=== PATIENT | female | born 1980 | race Caucasian/White ===

== ENCOUNTER 2023-01-01 01:41 | Emergency (ER) | payer OTHER, SELFPAY ==
[2023-01-01 01:43] VITALS: BP 132/90; PULSE 113; RESP 20; TEMP 36.9; O2SAT 99; BMI 30.9
--- NOTE | 2023-01-01 02:00 | PC.NURSE ---
pt presents to ED because she states that she was at [facility] today and her right knee locked up and she couldn't bend it. pt then fell onto right knee. bruising at this time. pt states it is difficult to extend leg. iced leg at home. took tylenol and cyclobenzaprine around 5pm. ambulated into room .
--- NOTE | 2023-01-01 02:08 | ED.LOWEXI1 ---
HPI - Extremity Injury (Lower) General Chief Complaint: Extremity Injury, Lower Stated Complaint: R KNEE Time Seen by Provider: 01/01/23 01:59 Source: patient Mode of arrival: walk-in Limitations: no limitations History of Present Illness HPI Narrative: running in the rain yesterday and fell outside onto her right knee. Pain ever since . Has to hobble to ambulate because of the pain. Denies numbness or weakness of the leg. Took tylenol for pain without relief MD complaint: Reports knee injury Injury: Right: knee Related Data Home Medications Medication Instructions Recorded Confirmed cyclobenzaprine 10 mg tablet 10 mg PO DAILY 01/01/23 01/01/23 doxepin 10 mg capsule 10 mg PO DAILY 01/01/23 01/01/23 lacosamide 100 mg tablet 100 mg PO DAILY 01/01/23 01/01/23 levetiracetam 500 mg 500 mg PO DAILY 01/01/23 01/01/23 tablet,extended release 24 hr nefazodone 100 mg tablet 100 mg PO DAILY 01/01/23 01/01/23 Allergies Allergy/AdvReac Type Severity Reaction Status Date / Time codeine Allergy Intermediate Swelling Verified 01/01/23 01:52 of Lip/Tongue/Throat amoxicillin Allergy Mild Hives Verified 01/01/23 01:52 Penicillins Allergy Mild Hives Verified 01/01/23 01:52 ibuprofen Allergy Unknown Verified 01/01/23 01:52 iv dye Allergy Intermediate Uncoded 01/01/23 01:52 Review of Systems ROS Status of ROS 10 or more systems reviewed and unremarkable except as noted in history and below [facility] Social History Smoking status: Current every day smoker Exam Constitutional Vital Signs - 24 hr 01/01/23 01:43 Temperature 98.5 F Pulse Rate [Monitor] 113 H Respiratory Rate 20 Blood Pressure [Right Arm] 132/90 H Pulse Oximetry 99 Oxygen Delivery Method Room Air Common normals: no apparent distress, oriented x3 and healthy appearing HENMT Common normals: normocephalic and head/scalp atraumatic Eye Common normals: EOMs intact bilaterally and conjunctivae normal Respiratory Common normals: no use of accessory muscles and clear to auscultation bilaterally Cardio Common normals: regular rhythm, S1 normal heart sound and S2 normal heart sound GI Common normals: non-tender Extremity Other: mild swelling and minor abrasion right knee. Keeps knee in flexion as position of comfort Neuro Common normals: oriented x3, moves all extremities, no focal motor deficits and no sensory deficits noted Psych Appearance: grossly normal Course Vital Signs Vital signs: Vital Signs Temperature 98.5 F 01/01/23 01:43 Pulse Rate 113 H 01/01/23 01:43 Respiratory Rate 20 01/01/23 01:43 Blood Pressure 132/90 H 01/01/23 01:43 Pulse Oximetry 99 01/01/23 01:43 Oxygen Delivery Method Room Air 01/01/23 01:43 Temperature 98.5 F 01/01/23 01:43 Pulse Rate 113 H 01/01/23 01:43 Respiratory Rate 20 01/01/23 01:43 Blood Pressure 132/90 H 01/01/23 01:43 Pulse Oximetry 99 01/01/23 01:43 Oxygen Delivery Method Room Air 01/01/23 01:43 MDM - Extremity Injury (Lower) MDM Narrative Medical decision making narrative: patient presents after a fall striking her knee. Has a contusion of the knee on exam. xray neg for fracture. Patient medicated for pain and then placed in a knee immobilizer and provided crutches. Discharged home to follow up with her doctor Discharge Plan Discharge Chief Complaint: Extremity Injury, Lower Clinical Impression: Contusion of knee, right Prescriptions / Home Meds: No Action cyclobenzaprine 10 mg tablet 10 mg PO DAILY doxepin 10 mg capsule 10 mg PO DAILY lacosamide 100 mg tablet 100 mg PO DAILY levetiracetam 500 mg tablet extended release 24 hr 500 mg PO DAILY nefazodone 100 mg tablet 100 mg PO DAILY Instructions: Contusion in Adults (ED) Stand Alone Forms: Portal Instructions Referrals: Physician,Non-Staff, MD [Primary Care Provider] - 1 week
--- NOTE | 2023-01-01 02:12 | XR_ITS ---
The [address] [address] Patient Name: MOISES KEE MRN: [id number] date: 1980 Sex: F Assigned Patient Location: ER Current Patient Location: ER Accession/Order Number: [id number] Exam Date: 01/01/2023 02:15 Report Date: 01/01/2023 03:33 At the request of: HANNAH FREY Procedure: XR knee RT 3V EXAM: XR knee RT 3V HISTORY: pain COMPARISON: None. TECHNIQUE: 3 views of the right knee were obtained. FINDINGS: No acute fracture or dislocation is seen. The joint spaces are preserved. There is no significant right knee joint effusion. IMPRESSION: 1. No acute fracture or dislocation of the right knee is seen. If there is concern for internal derangement, a nonemergent outpatient MRI is recommended. Electronically authenticated by: Toni SYED Date: 01/01/2023 03:33
[2023-01-01] MEDS: FENTANYL CITRATE/PF 100 MCG/2 ML VIAL IM (02:44)
[2023-01-01] MEDS: ONDANSETRON 4 MG RAPDIS TABLET SL (03:27)
[2023-01-01 04:25] VITALS: BP 128/86; O2SAT 99
[2023-01-01] MEDS: HYDROCODONE/ACETAMINOPHEN 5-325 MG TABLET 2 TAB PO (04:34)
== END 2023-01-01 04:39 | disposition home or self-care (01) ==
PROVIDERS: Emergency Provider Internal Medicine
DX: S80.01XA Contusion of right knee, initial encounter (principal); W19.XXXA Unspecified fall, initial encounter; Z79.899 Other long term (current) drug therapy; F17.210 Nicotine dependence, cigarettes, uncomplicated
CPT/HCPCS: 73562; 96372; 99284